=== PATIENT | male | born 1950 | race Caucasian/White ===

== ENCOUNTER 2022-05-17 09:29 | Emergency (ER) | payer OTHER, SELFPAY ==
[2022-05-17 09:52] VITALS: BP 180/91; PULSE 74; RESP 16; TEMP 36.6; O2SAT 99; BMI 28.1
--- NOTE | 2022-05-17 09:57 | XRR_ITS ---
PROCEDURE INFORMATION: Exam: XR Right Knee Exam date and time: 05/17/2022 10:58 AM Age: 72 years old Clinical indication: Pain; Knee; Right; Prior surgery; Surgery date: 6+ months; Additional info: R knee pain/swelling TECHNIQUE: Imaging protocol: Radiologic exam of the Right knee. Views: 1 or 2 views. COMPARISON: No relevant prior studies available. FINDINGS: Bones/joints: Negative for acute bony abnormality. Soft tissues: There is a suprapatellar bursa effusion. XR/XR knee RT 1-2V [id number] IMPRESSION: 1. No acute bone abnormality. 2. Suprapatellar bursa effusion
--- NOTE | 2022-05-17 12:27 | ED_ITS ---
HPI - Extremity Problem General: Chief complaint: Extremity Problem,Nontraumatic Stated complaint: Right Knee is Swollen Time Seen by Provider: 05/17/22 11:56 History of Present Illness: 72-year-old male presents with swollen right knee. Patient reports he has had issues on and off with some mild swelling for least 30 year but this is worse than normal. Patient does admit that yesterday he was working on his house and has been kneeling on his knee for most of the day. That when he awoke this morning he had swelling over the knee. Patient has no known injury. Review of Systems General: Reports: 10 or more systems reviewed and unremarkable except in HPI and below Musc: Reports: joint pain and joint swelling; Denies: joint redness Physical Exam Const: COMMON NORMALS: no acute distress, patient oriented x3 and no limitations Resp: COMMON NORMALS: normal respiratory effort and No use of accessory muscles Cardio: COMMON NORMALS: regular rate and regular rhythm RATE: regular rate RHYTHM: regular rhythm GI: COMMON NORMALS: Normal to inspection, nondistended, normoactive bowel sounds present and Soft to palpation PALPATION: Yes Soft to palpation Extremity: RIGHT LOWER EXTREMITY: Yes knee joint Right knee: Yes other (Swelling, mild warmth, full range of motion) Neuro: COMMON NORMALS: patient oriented x3 Skin: COMMON NORMALS: turgor normal NARRATIVE SKIN EXAM: No erythema noted GENERAL SKIN EXAM: turgor normal Course Vital Signs: Vital signs: Vital Signs Temperature 97.8 F 05/17/22 09:52 Pulse Rate 74 05/17/22 09:52 Respiratory Rate 16 05/17/22 09:52 Blood Pressure 180/91 05/17/22 09:52 Pulse Oximetry 99 05/17/22 09:52 Oxygen Delivery Me thod 05/17/22 09:52 MDM - Extremity (Nontraumatic) Medical Decision Making Patient knee is consistent with likely reactive arthritis. Patient with some chronic knee problems and with him kneeling yesterday likely exacerbated it. Discussed with him supportive care Sai wrap, follow-up with his clinical exercise specialist. Patient stable and discharged home Lab Data Radiology Impressions Knee X-Ray 05/17/22 09:57 IMPRESSION: 1. No acute bone abnormality. 2. Suprapatellar bursa effusion Discharge Plan Discharge Patient Disposition: Home Clinical Impression: Reactive arthritis Condition: Stable Discharge Orders: Discharge ED (Routine); Ordered 05/17/22 Ordered By: Bal Mcqueen Discharge Diet: Advance as tolerated Discharge Activity: Increase activity as tolerated Patient Instructions: Osteoarthritis (DC), Swollen Knee Joint (ED), Opioid Safety, Pain Management Activity Restrictions/Additional Instructions: Ibuprofen 800 mg 3 times daily, Sai wrap to affected knee. Follow-up with your primary care provider and clinical exercise specialist towards in the week if symptoms or not improving, elevate leg when not ambulating ice for 20 minutes at a time 3-4 times daily Coding Level of Care Code ED Photo Printer for Melvi Schneider
[2022-05-17] MEDS: ketorolac 30 mg/mL INJ 15 MG IM (12:35)
== END 2022-05-17 12:49 | disposition home or self-care (01) ==
PROVIDERS: Emergency Provider Student in an Organized Health Care Education/Training Program
DX: M02.361 Reiter's disease, right knee (principal)
CPT/HCPCS: 73560; 96372; 99284; J1885

== ENCOUNTER → 2022-06-16 14:55 | Outpatient (BNVA) | payer OTHER, MEDICARE, SELFPAY | PROVIDERS: Visit Provider Family Medicine | DX: I10 Essential (primary) hypertension (principal) | CPT/HCPCS: 80053; 80061; 85025 ==